=== PATIENT | male | born 1945 | race Caucasian/White ===

== ENCOUNTER 2020-12-01 00:56 | Inpatient (IN) ==
[2020-12-01] MEDS ORDERED: Aspirin 325 MG TABLET PO ONE ×2 (01:12→21:37)
[2020-12-01] MEDS ORDERED: *HR* Ticagrelor 90 MG TABLET PO ONE (01:20)
[2020-12-01] MEDS ORDERED: *HR* Heparin 5,000 UNIT/ML VIAL IVP PRN ×5 (01:22→19:45)
[2020-12-01] MEDS ORDERED: *HR* Heparin 5,000 UNIT/ML VIAL IVP ONE (01:22)
[2020-12-01] MEDS ORDERED: ISOVUE-370 200 ML INFUS..BTL ONE ×3 (01:30→02:33)
[2020-12-01] MEDS ORDERED: 0.9 % Sodium Chloride 1,000 ML ONE ×2 (01:30→01:51)
[2020-12-01] MEDS ORDERED: Heparin 1,000 UNITS/500 mL 500 ML ONE (01:30)
[2020-12-01] MEDS ORDERED: Nitroglycerin 1,000 MCG/5 ML VIAL IV ONE (01:30)
[2020-12-01] MEDS ORDERED: *HR* Heparin 10,000 UNIT/10 ML VIAL ONE (01:30)
[2020-12-01] MEDS ORDERED: Heparin 25,000UNIT/250ML 1/2NS 25,000 UNIT/250 ML IV.SOLN IVC SCH ×2 (01:30→12:15)
[2020-12-01] MEDS ORDERED: *HR* FentaNYL (PF) 100 MCG/2 ML VIAL ONE (01:44)
[2020-12-01] MEDS ORDERED: *HR* Midazolam HCl 2 MG/2 ML VIAL ONE (01:45)
[2020-12-01] MEDS ORDERED: methylPREDNISolone 125 MG/2 ML VIAL ONE (01:49)
[2020-12-01 01:58] LABS: Basophils % 0.1 %; Hematocrit 42.9 % (37.5-50.1); Hemoglobin 14.2 g/dL (12.9-16.9); Immature Granulocytes % 0.3 % (0-4); Lymphocytes # 1.4 K/mcL (0.6-4.6); Lymphocytes % 9.6 %; Mean Corpuscular HGB Conc 33.1 g/dL (31.6-35.5); Mean Corpuscular Hemoglobin 31.4 pg (28.0-33.3); Mean Corpuscular Volume 94.9 fL (83.0-100.0); Mean Platelet Volume 10.3 fL (9.4-12.4); Monocytes # 1.4 K/mcL (0.0-1.3); Monocytes % 9.6 %; Neutrophils # 11.7 K/mcL (1.6-8.9); Platelet Count 285 K/mcL (140-400); Red Blood Count 4.52 M/mcL (4.19-5.50); Red Cell Distribution Width 12.7 % (11.5-14.5); Segmented Neutrophils % 80.4 %; White Blood Count 14.5 K/mcL (4.3-11.1)
[2020-12-01 02:01] LABS: Alanine Aminotransferase 5 Units/L (7-52); Albumin 4.3 g/dL (3.5-5.7); Albumin/Globulin Ratio 1.7 (1.1-2.2); Alkaline Phosphatase 154 Units/L (34-104); Aspartate Amino Transferase 159 Units/L (13-39); BUN/Creatinine Ratio 25 (6-26); Bilirubin,Total 0.9 mg/dL (0.3-1.0); Blood Urea Nitrogen 23 mg/dL (8-23); Calcium 9.8 mg/dL (8.6-10.3); Carbon Dioxide 25 mEq/L (23-29); Chloride 100 mEq/L (98-107); Globulin 2.6 g/dL (2.4-3.5); Glucose 173 mg/dL (70-105); Osmolality,Calculated 292 (280-300); Potassium 4.4 mEq/L (3.5-5.1); Sodium 137 mEq/L (136-145); Total Protein 6.9 g/dL (6.4-8.9); eGFR For African Americans > 60 (> 60); eGFR For Non-African Americans > 60 (> 60)
[2020-12-01] MEDS ORDERED: Tirofiban 12.5 MG/250ML 12.5 MG/250 ML BAG ONE (02:01)
[2020-12-01 02:09] LABS: Heparin anti-factor XA UFH 0.04 IU/mL (0.30-0.70); INR 1.1; Prothrombin Time 12.6 Seconds (9.4-12.1)
[2020-12-01 02:11] LABS: Activated Partial Thrombo Time 34.7 Seconds (26.0-36.0)
[2020-12-01 02:49] LABS: Troponin I 12.81 ng/mL (< 0.04)
[2020-12-01 02:50] LABS: Influenza A PCR Negative (Negative); Influenza B PCR Negative (Negative); Resp. Syncytial Virus PCR Negative (Negative)
[2020-12-01 02:51] LABS: SARS-CoV-2 by PCR (In House) Negative (Negative)
[2020-12-01] MEDS ORDERED: Perflutren Lipid Microsphere 1.3 ML in 0.9 % Sodium Chloride 8.7 ML IVP PRN (02:52)
[2020-12-01] MEDS ORDERED: Tirofiban 12.5 MG/250ML 12.5 MG/250 ML BAG IVC SCH (03:00)
[2020-12-01 06:29] LABS: Basophils % 0.1 %; Hematocrit 40.5 % (37.5-50.1); Hemoglobin 13.3 g/dL (12.9-16.9); Immature Granulocytes % 0.4 % (0-4); Lymphocytes # 0.5 K/mcL (0.6-4.6); Lymphocytes % 3.8 %; Mean Corpuscular HGB Conc 32.8 g/dL (31.6-35.5); Mean Corpuscular Hemoglobin 31.1 pg (28.0-33.3); Mean Corpuscular Volume 94.6 fL (83.0-100.0); Monocytes # 0.6 K/mcL (0.0-1.3); Monocytes % 4.4 %; Neutrophils # 12.7 K/mcL (1.6-8.9); Platelet Count 242 K/mcL (140-400); Red Blood Count 4.28 M/mcL (4.19-5.50); Red Cell Distribution Width 12.8 % (11.5-14.5); Segmented Neutrophils % 91.3 %
[2020-12-01 07:10] LABS: BUN/Creatinine Ratio 27 (6-26); Blood Urea Nitrogen 21 mg/dL (8-23); Carbon Dioxide 20 mEq/L (23-29); Chloride 102 mEq/L (98-107); Glucose 177 mg/dL (70-105); Osmolality,Calculated 285 (280-300); Potassium 4.5 mEq/L (3.5-5.1); Sodium 134 mEq/L (136-145); eGFR For African Americans > 60 (> 60); eGFR For Non-African Americans > 60 (> 60)
[2020-12-01] MEDS ORDERED: *HR* Ticagrelor 90 MG TABLET PO SCH (09:00)
[2020-12-01] MEDS ORDERED: Aspirin 81 MG TAB.CHEW PO SCH (09:00)
[2020-12-01] MEDS ORDERED: Ascorbic Acid 500 MG TABLET PO SCH (10:45)
[2020-12-01] MEDS: Carbidopa/Levodopa 25/100 TABLET PO SCH ×3 (11:08→22:00)
[2020-12-01] MEDS ORDERED: Warfarin perPT PO PRN ×2 (18:00→19:45)
[2020-12-01] MEDS ORDERED: *HR* Warfarin 2.5 MG TABLET PO ONE (18:00)
[2020-12-01] MEDS: Heparin 25,000UNIT/250ML 1/2NS 25,000 UNIT/250 ML IV.SOLN IVC SCH (20:00)
[2020-12-01] MEDS ORDERED: Nitroglycerin 1,000 MCG/10 ML VIAL IV PRN ×2 (20:39→23:10)
[2020-12-01] MEDS ORDERED: Acetaminophen 325 MG TABLET PO SCH (21:00)
[2020-12-01] MEDS ORDERED: Carbidopa/Levodopa ER 50/200 TABLET PO SCH (21:00)
[2020-12-01] MEDS: Acetaminophen 325 MG TABLET PO SCH (22:01)
[2020-12-01] MEDS: *HR* Ticagrelor 90 MG TABLET PO SCH (22:01)
[2020-12-01] MEDS: Carbidopa/Levodopa ER 50/200 TABLET PO SCH (22:01)
[2020-12-01] MEDS: Colchicine 0.6 MG TABLET PO SCH (22:01)
[2020-12-01] MEDS: *HR* OxyCODONE/APAP 5/325 TABLET PO PRN (23:15)
[2020-12-02] MEDS ORDERED: Multivit/Ca/Min/Fe/FA 1 TAB TABLET PO SCH (07:00)
[2020-12-02 08:45] LABS: INR 1.2; Prothrombin Time 13.5 Seconds (9.4-12.1)
[2020-12-02] MEDS: Colchicine 0.6 MG TABLET PO SCH ×2 (08:49→21:00)
[2020-12-02] MEDS: Cholecalciferol (D-3) 1,000 UNIT (25MCG) TABLET PO SCH (08:49)
[2020-12-02] MEDS: *HR* Ticagrelor 90 MG TABLET PO SCH ×2 (08:49→21:00)
[2020-12-02] MEDS: Multivit/Ca/Min/Fe/FA 1 TAB TABLET PO SCH (08:49)
[2020-12-02] MEDS: Carbidopa/Levodopa 25/100 TABLET PO SCH ×4 (08:50→22:04)
[2020-12-02] MEDS: Ascorbic Acid 500 MG TABLET PO SCH (08:50)
[2020-12-02] MEDS: Acetaminophen 325 MG TABLET PO SCH ×2 (08:50→21:00)
[2020-12-02] MEDS ORDERED: (Empagliflozin [Jardiance] 25 MG Tablet) PO SCH (09:00)
[2020-12-02] MEDS ORDERED: Aspirin 81 MG TAB.CHEW PO SCH (09:00)
[2020-12-02] MEDS ORDERED: (Ezetimibe [Zetia] 10 MG Tablet) PO SCH (09:00)
[2020-12-02] MEDS ORDERED: Cholecalciferol (D-3) 1,000 UNIT (25MCG) TABLET PO SCH (09:00)
[2020-12-02] MEDS: (Ezetimibe [Zetia] 10 MG Tablet) PO SCH (13:04)
[2020-12-02] MEDS: (Empagliflozin [Jardiance] 25 MG Tablet) PO SCH (13:04)
[2020-12-02] MEDS ORDERED: *HR* Warfarin 5 MG TABLET PO ONE (18:00)
[2020-12-02] MEDS: Aspirin 325 MG TABLET PO SCH (21:01)
[2020-12-02] MEDS: Heparin 25,000UNIT/250ML 1/2NS 25,000 UNIT/250 ML IV.SOLN IVC SCH (21:02)
[2020-12-02] MEDS: Carbidopa/Levodopa ER 50/200 TABLET PO SCH (21:15)
[2020-12-03 04:31] LABS: Basophils % 0.3 %; Eosinophils % 0.3 %; Hematocrit 36.1 % (37.5-50.1); Immature Granulocytes % 0.8 % (0-4); Lymphocytes # 1.1 K/mcL (0.6-4.6); Lymphocytes % 11.3 %; Mean Corpuscular HGB Conc 32.7 g/dL (31.6-35.5); Mean Corpuscular Hemoglobin 31.3 pg (28.0-33.3); Mean Corpuscular Volume 95.8 fL (83.0-100.0); Mean Platelet Volume 10.3 fL (9.4-12.4); Monocytes # 1.3 K/mcL (0.0-1.3); Neutrophils # 7.4 K/mcL (1.6-8.9); Platelet Count 229 K/mcL (140-400); Red Blood Count 3.77 M/mcL (4.19-5.50); Segmented Neutrophils % 74.3 %
[2020-12-03 04:33] LABS: INR 1.1; Prothrombin Time 12.4 Seconds (9.4-12.1)
[2020-12-03 04:37] LABS: Hemoglobin 11.8 g/dL (12.9-16.9)
[2020-12-03 04:46] LABS: Alanine Aminotransferase 3 Units/L (7-52); Albumin 3.5 g/dL (3.5-5.7); Albumin/Globulin Ratio 1.2 (1.1-2.2); Alkaline Phosphatase 105 Units/L (34-104); Aspartate Amino Transferase 64 Units/L (13-39); BUN/Creatinine Ratio 30 (6-26); Bilirubin,Total 0.8 mg/dL (0.3-1.0); Blood Urea Nitrogen 29 mg/dL (8-23); Calcium 9.1 mg/dL (8.6-10.3); Carbon Dioxide 25 mEq/L (23-29); Chloride 100 mEq/L (98-107); Glucose 141 mg/dL (70-105); Osmolality,Calculated 290 (280-300); Potassium 3.7 mEq/L (3.5-5.1); Sodium 136 mEq/L (136-145); Total Protein 6.5 g/dL (6.4-8.9); eGFR For African Americans > 60 (> 60); eGFR For Non-African Americans > 60 (> 60)
[2020-12-03] MEDS: *HR* Heparin 5,000 UNIT/ML VIAL IVP PRN ×2 (05:57→20:37)
[2020-12-03] MEDS: Colchicine 0.6 MG TABLET PO SCH ×2 (08:57→20:34)
[2020-12-03] MEDS: Carbidopa/Levodopa 25/100 TABLET PO SCH ×4 (08:57→20:33)
[2020-12-03] MEDS: Aspirin 325 MG TABLET PO SCH (08:57)
[2020-12-03] MEDS: Ascorbic Acid 500 MG TABLET PO SCH (08:57)
[2020-12-03] MEDS: Multivit/Ca/Min/Fe/FA 1 TAB TABLET PO SCH (08:59)
[2020-12-03] MEDS: Cholecalciferol (D-3) 1,000 UNIT (25MCG) TABLET PO SCH (08:59)
[2020-12-03] MEDS: Acetaminophen 325 MG TABLET PO SCH ×2 (08:59→20:33)
[2020-12-03] MEDS: *HR* Ticagrelor 90 MG TABLET PO SCH ×2 (09:00→20:34)
[2020-12-03] MEDS: (Ezetimibe [Zetia] 10 MG Tablet) PO SCH (09:00)
[2020-12-03] MEDS: (Empagliflozin [Jardiance] 25 MG Tablet) PO SCH (09:00)
[2020-12-03 10:21] LABS: Hematocrit 36.9 % (37.5-50.1); Hemoglobin 11.5 g/dL (12.9-16.9); Mean Corpuscular HGB Conc 31.2 g/dL (31.6-35.5); Mean Corpuscular Hemoglobin 30.1 pg (28.0-33.3); Mean Corpuscular Volume 96.6 fL (83.0-100.0); Mean Platelet Volume 10.6 fL (9.4-12.4); Platelet Count 219 K/mcL (140-400); Red Blood Count 3.82 M/mcL (4.19-5.50); White Blood Count 9.5 K/mcL (4.3-11.1)
[2020-12-03] MEDS: Heparin 25,000UNIT/250ML 1/2NS 25,000 UNIT/250 ML IV.SOLN IVC SCH (12:46)
[2020-12-03] MEDS ORDERED: *HR* Metoprolol 5 MG/5 ML VIAL IVP STA (16:00)
[2020-12-03] MEDS ORDERED: *HR* Warfarin 5 MG TABLET PO ONE (18:00)
[2020-12-03] MEDS: Metoprolol XL (24 HR) Succ 25 MG TAB.ER.24H PO SCH (20:34)
[2020-12-03] MEDS: Carbidopa/Levodopa ER 50/200 TABLET PO SCH (20:34)
[2020-12-04] MEDS: Heparin 25,000UNIT/250ML 1/2NS 25,000 UNIT/250 ML IV.SOLN IVC SCH ×2 (01:55→14:29)
[2020-12-04 03:13] LABS: INR 1.2; Prothrombin Time 13.6 Seconds (9.4-12.1)
[2020-12-04] MEDS: *HR* OxyCODONE/APAP 5/325 TABLET PO PRN ×2 (03:46→14:26)
[2020-12-04] MEDS: Ascorbic Acid 500 MG TABLET PO SCH (08:04)
[2020-12-04] MEDS: Metoprolol XL (24 HR) Succ 25 MG TAB.ER.24H PO SCH ×2 (08:04→21:00)
[2020-12-04] MEDS: Colchicine 0.6 MG TABLET PO SCH ×2 (08:04→19:39)
[2020-12-04] MEDS: *HR* Ticagrelor 90 MG TABLET PO SCH ×2 (08:04→19:39)
[2020-12-04] MEDS: Cholecalciferol (D-3) 1,000 UNIT (25MCG) TABLET PO SCH (08:04)
[2020-12-04] MEDS: Multivit/Ca/Min/Fe/FA 1 TAB TABLET PO SCH (08:04)
[2020-12-04] MEDS: Acetaminophen 325 MG TABLET PO SCH ×2 (08:05→19:40)
[2020-12-04] MEDS: Aspirin Enteric Coated 81 MG Tablet PO SCH (08:05)
[2020-12-04] MEDS: Carbidopa/Levodopa 25/100 TABLET PO SCH ×4 (08:05→19:39)
[2020-12-04] MEDS: (Empagliflozin [Jardiance] 25 MG Tablet) PO SCH (08:06)
[2020-12-04] MEDS: (Ezetimibe [Zetia] 10 MG Tablet) PO SCH (08:06)
[2020-12-04] MEDS ORDERED: *HR* Warfarin 7.5 MG TABLET PO ONE (18:00)
[2020-12-04] MEDS: Carbidopa/Levodopa ER 50/200 TABLET PO SCH (19:39)
[2020-12-04] MEDS ORDERED: Acetaminophen 325 MG TABLET PO PRN (20:02)
[2020-12-05] MEDS: Heparin 25,000UNIT/250ML 1/2NS 25,000 UNIT/250 ML IV.SOLN IVC SCH ×2 (02:31→14:19)
[2020-12-05 03:54] LABS: Basophils % 0.4 %; Eosinophils # 0.1 K/mcL (0.0-0.6); Eosinophils % 1.1 %; Hematocrit 35.6 % (37.5-50.1); Hemoglobin 11.5 g/dL (12.9-16.9); Immature Granulocytes % 0.7 % (0-4); Lymphocytes # 0.8 K/mcL (0.6-4.6); Lymphocytes % 11.7 %; Mean Corpuscular HGB Conc 32.3 g/dL (31.6-35.5); Mean Corpuscular Hemoglobin 30.6 pg (28.0-33.3); Mean Corpuscular Volume 94.7 fL (83.0-100.0); Mean Platelet Volume 10.5 fL (9.4-12.4); Monocytes # 0.8 K/mcL (0.0-1.3); Monocytes % 11.6 %; Neutrophils # 5.3 K/mcL (1.6-8.9); Platelet Count 253 K/mcL (140-400); Red Blood Count 3.76 M/mcL (4.19-5.50); Segmented Neutrophils % 74.5 %; White Blood Count 7.2 K/mcL (4.3-11.1)
[2020-12-05 04:18] LABS: INR 1.3; Prothrombin Time 14.8 Seconds (9.4-12.1)
[2020-12-05] MEDS: Colchicine 0.6 MG TABLET PO SCH ×2 (09:35→21:59)
[2020-12-05] MEDS: Aspirin Enteric Coated 81 MG Tablet PO SCH (09:35)
[2020-12-05] MEDS: Metoprolol XL (24 HR) Succ 25 MG TAB.ER.24H PO SCH ×2 (09:35→21:59)
[2020-12-05] MEDS: Ascorbic Acid 500 MG TABLET PO SCH (09:35)
[2020-12-05] MEDS: *HR* Ticagrelor 90 MG TABLET PO SCH ×2 (09:35→21:59)
[2020-12-05] MEDS: Multivit/Ca/Min/Fe/FA 1 TAB TABLET PO SCH (09:35)
[2020-12-05] MEDS: Acetaminophen 325 MG TABLET PO SCH ×2 (09:35→21:58)
[2020-12-05] MEDS: Cholecalciferol (D-3) 1,000 UNIT (25MCG) TABLET PO SCH (09:35)
[2020-12-05] MEDS: Carbidopa/Levodopa 25/100 TABLET PO SCH ×4 (09:36→21:58)
[2020-12-05] MEDS: (Ezetimibe [Zetia] 10 MG Tablet) PO SCH (09:36)
[2020-12-05] MEDS: (Empagliflozin [Jardiance] 25 MG Tablet) PO SCH (09:36)
[2020-12-05] MEDS ORDERED: *HR* Warfarin 7.5 MG TABLET PO ONE (18:00)
[2020-12-05 19:12] LABS: Bilirubin,Urine Negative (Negative); Blood,Urine Trace (Negative); Clarity,Urine Clear (Clear); Color,Urine Light-Yellow (Yellow); Glucose,Urine (UA) >=1000 mg/dL (Normal); Ketones,Urine 10 mg/dL (Negative); Leukocyte Esterase,Urine Negative (Negative); Mucus,Urine Few per lpf (None-Few); Nitrite,Urine Negative (Negative); Protein,Urine Negative (Neg-Trace); Specific Gravity,Urine > 1.030 (1.010-1.025); Squamous Epithelial Cell,Urine Few per hpf (None-Few); Urobilinogen,Urine Normal (Normal); WBC,Urine 0-3 per hpf (0-3)
[2020-12-05] MEDS: Carbidopa/Levodopa ER 50/200 TABLET PO SCH (21:59)
[2020-12-06] MEDS: Heparin 25,000UNIT/250ML 1/2NS 25,000 UNIT/250 ML IV.SOLN IVC SCH (03:24)
[2020-12-06 05:24] LABS: INR 1.8; Prothrombin Time 19.6 Seconds (9.4-12.1)
[2020-12-06 06:42] VITALS: BP 116/73; TEMP 98.1; O2SAT 98
[2020-12-06] MEDS: (Ezetimibe [Zetia] 10 MG Tablet) PO SCH (07:52)
[2020-12-06] MEDS: (Empagliflozin [Jardiance] 25 MG Tablet) PO SCH (07:52)
[2020-12-06] MEDS: Ascorbic Acid 500 MG TABLET PO SCH (07:57)
[2020-12-06] MEDS: Acetaminophen 325 MG TABLET PO SCH (07:58)
[2020-12-06] MEDS: *HR* Ticagrelor 90 MG TABLET PO SCH (07:58)
[2020-12-06] MEDS: Colchicine 0.6 MG TABLET PO SCH (07:58)
[2020-12-06] MEDS: Carbidopa/Levodopa 25/100 TABLET PO SCH (07:58)
[2020-12-06] MEDS: Aspirin Enteric Coated 81 MG Tablet PO SCH (07:58)
[2020-12-06] MEDS: Multivit/Ca/Min/Fe/FA 1 TAB TABLET PO SCH (07:58)
[2020-12-06] MEDS: Cholecalciferol (D-3) 1,000 UNIT (25MCG) TABLET PO SCH (07:59)
[2020-12-06] MEDS: Metoprolol XL (24 HR) Succ 25 MG TAB.ER.24H PO SCH (07:59)
[2020-12-06 08:10] VITALS: PULSE 61
[2020-12-06] MEDS ORDERED: FLU Vac QV 21-22 (6Month+)/PF 0.5 ML SYRINGE IM ONE (10:44)
[2020-12-06] MEDS ORDERED: *HR* Warfarin 3 MG TABLET PO ONE (18:00)
== END 2020-12-06 13:18 | disposition home health service (06) | DRG 247 ==
LOC: ICNU 00:56 → EMEROOARM 00:56 → ICNU 01:54 → 2NNU 17:27
PROVIDERS: ADMIT Internal Medicine Cardiovascular Disease; ATTEND Student in an Organized Health Care Education/Training Program